=== PATIENT | male | born 1970 | race African-American/Black ===

== ENCOUNTER 2019-09-13 16:56 | Emergency (ER) | payer MEDICAID ==
[~2019-09-13] VITALS: Ht 170.2 cm; Wt 107.0 kg
[2019-09-13 17:07] VITALS: BP 159/111
--- NOTE | 2019-09-13 17:07 | NUR ---
Patient ambulated to bed 6. RN evaluating patient at bedside.
--- NOTE | 2019-09-13 17:10 | NUR ---
Dr. Hughes is evaluating the patient at bedside.
--- NOTE | 2019-09-13 17:10 | NUR ---
49 YEAR OLD MALE STATES THAT HIS BLOOD SUGAR WAS HIGH AT 415. PATIENT NAUSEA, VOMITTING, BLURRY VISION, CHEST PAIN. PATIENT STATES HE HAS FELT MORE THIRSTY AND URINATED MORE. PATIENT BLOOD SUGAR 419 ON ARRIVAL. PATIENT AOX4, BREATHING EVEN AND UNLABORED, SKIN WARM AND DRY. BED IN LOWEST POSITION, LOCKED, BED RAIL UPX1.
[2019-09-13] MEDS ORDERED: NACL 0.9% 2,000 ML IV ONE (17:15)
[2019-09-13] MEDS ORDERED: ATEN50TA8 PO (17:16)
[2019-09-13] MEDS ORDERED: ATOR40TA PO (17:16)
[2019-09-13] MEDS ORDERED: METF1000 PO (17:16)
[2019-09-13] MEDS ORDERED: LISI-420 PO (17:16)
[2019-09-13 18:03] LABS: BASOPHILS # (AUTO) 0.1 K/uL (0.00-0.22); BASOPHILS % (AUTO) 1.6 % (0.0-2.0); EOSINOPHILS # (AUTO) 0.1 K/uL (0-0.4); EOSINOPHILS % (AUTO) 0.9 % (0.0-4.0); HEMATOCRIT 44.3 % (36-52); HEMOGLOBIN 14.5 g/dL (12.0-18.0); LYMPHOCYTES # (AUTO) 1.5 K/uL (2.0-11.5); LYMPHOCYTES % (AUTO) 25.4 % (20.5-51.1); MEAN CORPUSCULAR HEMOGLOBIN 29 pg (27-31); MEAN CORPUSCULAR HGB CONC 33 g/dL (33-37); MONOCYTES # (AUTO) 0.6 K/uL (0.8-1.0); MONOCYTES % (AUTO) 10.8 % (1.7-9.3); NEUTROPHILS # (AUTO) 3.6 K/uL (1.8-7.7); NEUTROPHILS % (AUTO) 61.3 % (42.2-75.2); PLATELET COUNT (AUTO) 116 K/uL (140-450); RED BLOOD CELL COUNT(AUTO) 5.04 MIL/uL (4.20-6.10); RED CELL DISTRIBUTION WIDTH 13.6 % (11.6-13.7); WHITE BLOOD COUNT (AUTO) 5.8 K/uL (4.8-10.8)
[2019-09-13 18:21] LABS: ALBUMIN 3.4 g/dL (3.4-5.0); ANION GAP 12.8 (8-16); CARBON DIOXIDE 29.8 mmol/L (21-32); CREATININE 1.3 mg/dL (0.7-1.3); POTASSIUM 4.6 mmol/L (3.5-5.1); TOTAL BILIRUBIN 0.5 mg/dL (0.0-1.0)
[2019-09-13] MEDS ORDERED: INSULIN REGULAR, HUMAN 100 UNIT/ML VIAL IVP ONE (18:35)
[2019-09-13 19:42] VITALS: BP 110/62
--- NOTE | 2019-09-13 19:42 | NUR ---
Patient discharged with v/s stable. Written and verbal after care instructions ABOUT HYPERGLYCEMIA given and explained. Patient alert, oriented and verbalized understanding of instructions. Ambulatory with steady gait. All questions addressed prior to discharge. ID band removed. Patient advised to follow up with PMD. Rx of METFORMIN given. Patient educated on indication of medication including possible reaction and side effects. Opportunity to ask questions provided and answered. DOCTOR ALDEN AWARE OF 321 BLOOD SUGAR, STATES OK FOR DISCHARGE
== END 2019-09-13 19:42 | disposition home or self-care (01) ==
LOC: MED 16:56
DX: E11.65 Type 2 diabetes mellitus with hyperglycemia (principal); I10 Essential (primary) hypertension; Z79.84 Long term (current) use of oral hypoglycemic drugs; Z79.899 Other long term (current) drug therapy
CPT/HCPCS: 36415; 80053; 81002; 83036; 84484; 85025; 93005; 96361; 96374; 99283; J1815